=== PATIENT | male | born 1945 | race Caucasian/White ===

== ENCOUNTER 2021-11-01 21:37 | Observation (INO) ==
[2021-11-02 00:55] LABS: ABS Basophils 0.1 10^3/ul (0-0.2); ABS Lymphocytes 0.9 10^3/ul (1.0-4.8); ABS Monocytes 1.2 10^3/ul (0-0.8); ABS Neutrophils 10.2 10^3/ul (1.5-7.7); Hematocrit 40 % (42-52); Lymphocyte % 7.4 %; Mean Corpuscular HGB Conc 32 g/dL (31-36); Mean Corpuscular Hemoglobin 28 pg (27-31); Mean Corpuscular Volume 86 fL (80-94); Mean Platelet Volume 7.8 fL (7.4-10.4); Platelet Count 335 10^3/uL (150-450); Red Blood Count 4.65 10^6 /uL (4.18-5.48); Red Cell Distribution Width 15 % (10-15); White Blood Count 12.4 10^3/uL (3.5-10.8)
[2021-11-02 01:49] LABS: Urine Appearance Clear; Urine Bilirubin Negative (Negative); Urine Blood Trace (Intact) (Negative); Urine Color Yellow; Urine Glucose 1+ (250mg/dL) (Negative); Urine Ketones Trace (Negative); Urine Nitrite Negative (Negative); Urine Protein 2+ (100 mg/dL) (Negative); Urine Specific Gravity 1.025 (1.005-1.030); Urine Urobilinogen 0.2 (Negative) (Negative)
[2021-11-02 01:58] LABS: Albumin 3.8 g/dL (3.2-5.2); Calcium 9.9 mg/dL (8.6-10.3); Potassium 3.8 mmol/L (3.5-5.0); Total Bilirubin 0.5 mg/dL (0.2-1.0)
[2021-11-02 02:04] LABS: Albumin/Globulin Ratio 1.2 (1-3); Globulin 3.2 g/dL (2-4); eGFR CKD-EPI 74.4 (>60)
[2021-11-02 02:05] LABS: Urine Bacteria Absent (Absent); Urine Red Blood Cell 2+(6-10/hpf) (Absent); Urine Squamous Epithelial Cell Present (Absent); Urine White Blood Cell 1+(6-10/hpf) (Absent)
[2021-11-02] MEDS ORDERED: BEBTELOVIMAB 175 MG/2 ML VIAL IV ONE (06:44)
[2021-11-02] MEDS ORDERED: Sulfamethox/Trimethoprim DS TAB 800/160 mg PO ONE (06:48)
[2021-11-02] MEDS ORDERED: NS 0.9% 1000 ml BAG 1,000 ML IV ONE (06:48)
[2021-11-02] MEDS ORDERED: Lactated Ringers 1000 ml BAG 1,000 ML IV ONE (07:18)
[2021-11-02] MEDS ORDERED: cefTRIAXone 1 gm/50 mL D5W 1 GM/50 ML BAG IV ONE (07:21)
[2021-11-02] MEDS ORDERED: Dextrose 50% Syringe 50 ml 25 GM/50 ML SYRINGE IV PUSH PRN (10:10)
[2021-11-02] MEDS ORDERED: NS 0.9% 1000 ml BAG 1,000 ML IV SCH (10:15)
[2021-11-02] MEDS ORDERED: Iodixanol (CONTRAST) 320 MG/ML 100 ML SDV IV ONE (11:00)
[2021-11-02] MEDS ORDERED: Remdesivir 100 mg Vial 200 MG in NS 0.9% 250 ml 210 ML IV ONE (12:00)
[2021-11-02] MEDS: Insulin GLARGINE 100 un/ml 10 ml VIAL SUBCUT SCH (12:25)
[2021-11-02] MEDS ORDERED: Digoxin IV 0.5 MG/2 ML AMP (0.25 MG/ML) IV SLOW PU ONE (15:53)
[2021-11-02] MEDS ORDERED: Metoprolol Tartrate 5 mg VIAL 5 ml VIAL (1 mg/ml) IV ONE (18:15)
[2021-11-02 21:44] LABS: INR 1.13 (0.89-1.11)
[2021-11-02] MEDS: Latanoprost 0.005% 2.5 ml BTL BOTH EYES SCH (22:56)
[2021-11-02] MEDS: Enoxaparin 100 MG/ML SYR SUBCUT SCH (23:05)
[2021-11-03 05:31] LABS: Hematocrit 37 % (42-52); Hemoglobin 12.2 g/dL (14.0-18.0); Mean Corpuscular HGB Conc 33 g/dL (31-36); Mean Corpuscular Hemoglobin 28 pg (27-31); Mean Corpuscular Volume 86 fL (80-94); Platelet Count 259 10^3/uL (150-450); Red Blood Count 4.33 10^6 /uL (4.18-5.48); Red Cell Distribution Width 15 % (10-15); White Blood Count 10.8 10^3/uL (3.5-10.8)
[2021-11-03 05:37] LABS: INR 1.23 (0.89-1.11)
[2021-11-03 06:02] LABS: Albumin 3.1 g/dL (3.2-5.2); Albumin/Globulin Ratio 1.1 (1-3); Globulin 2.7 g/dL (2-4); Potassium 3.1 mmol/L (3.5-5.0); Total Bilirubin 0.4 mg/dL (0.2-1.0); Total Protein 5.8 g/dL (6.4-8.9)
[2021-11-03] MEDS ORDERED: Perflutren Lipid Microsphere 3 ML VIAL ONE (09:47)
[2021-11-03] MEDS: Insulin GLARGINE 100 un/ml 10 ml VIAL SUBCUT SCH (10:06)
[2021-11-03] MEDS: Enoxaparin 100 MG/ML SYR SUBCUT SCH (10:12)
[2021-11-03] MEDS ORDERED: Potassium Chlor 20 meq TAB.ER PO ONE (15:25)
[2021-11-03] MEDS: Latanoprost 0.005% 2.5 ml BTL BOTH EYES SCH (20:35)
[2021-11-03] MEDS: Remdesivir 100 mg Vial 100 MG in NS 0.9% 250 ml 230 ML IV SCH (20:36)
[2021-11-04 05:31] LABS: INR 1.41 (0.89-1.11)
[2021-11-04 05:45] LABS: Albumin 3.1 g/dL (3.2-5.2); Albumin/Globulin Ratio 1.1 (1-3); Calcium 9.3 mg/dL (8.6-10.3); Globulin 2.7 g/dL (2-4); Potassium 3.8 mmol/L (3.5-5.0); Total Bilirubin 0.4 mg/dL (0.2-1.0); Total Protein 5.8 g/dL (6.4-8.9); eGFR CKD-EPI 87.4 (>60)
[2021-11-04] MEDS: Insulin GLARGINE 100 un/ml 10 ml VIAL SUBCUT SCH (08:27)
[2021-11-04] MEDS: Latanoprost 0.005% 2.5 ml BTL BOTH EYES SCH (20:20)
[2021-11-04] MEDS: Remdesivir 100 mg Vial 100 MG in NS 0.9% 250 ml 230 ML IV SCH (20:21)
[2021-11-05 05:51] LABS: INR 1.49 (0.89-1.11)
[2021-11-05 06:05] LABS: Albumin 3.3 g/dL (3.2-5.2); Albumin/Globulin Ratio 1.1 (1-3); Calcium 9.4 mg/dL (8.6-10.3); Globulin 3.1 g/dL (2-4); Potassium 3.9 mmol/L (3.5-5.0); Total Bilirubin 0.5 mg/dL (0.2-1.0); Total Protein 6.4 g/dL (6.4-8.9); eGFR CKD-EPI 88.6 (>60)
[2021-11-05] MEDS ORDERED: Insulin GLARGINE 100 un/ml 10 ml VIAL SUBCUT SCH (09:00)
[2021-11-05 13:33] VITALS: BP 111/61
[2021-11-05] MEDS ORDERED: Remdesivir 100 mg Vial 100 MG in NS 0.9% 250 ml 230 ML IV ONE (21:00)
== END 2021-11-05 13:20 | disposition home or self-care (01) ==
LOC: ED 21:37 → INTOOBSV 11-02 10:00 → SUATTDRO 11-02 10:00 → EDHOLD 11-02 10:00 → MEDTELE 11-03 14:32
PROVIDERS: ADMIT Hospitalist; ATTEND Internal Medicine